=== PATIENT | female | born 1990 | race Caucasian/White ===

== ENCOUNTER → 2019-07-29 14:48 | Outpatient (CLI) | payer OTHER, SELFPAY ==
[2019-07-29 09:48] VITALS: BMI 33.4
[2019-08-02 16:08] LABS: HPV Reflexed? NOT INDICATED
== END ==
PROVIDERS: Family Provider Student in an Organized Health Care Education/Training Program; PCP Student in an Organized Health Care Education/Training Program; Visit Provider Obstetrics & Gynecology
DX: Z12.4 Encounter for screening for malignant neoplasm of cervix (principal)
CPT/HCPCS: 88175; G0145

== ENCOUNTER 2019-08-23 05:19 | Emergency (ER) | payer OTHER, SELFPAY ==
[2019-08-12 12:46] VITALS: BMI 33.4
[2019-08-23 05:23] VITALS: BP 135/94; PULSE 111; RESP 20; TEMP 36.8; O2SAT 99; BMI 40.4
[2019-08-23] MEDS: Ketorolac 30 MG/ML Syringe IV (06:01)
[2019-08-23] MEDS: Ondansetron 4 MG/2 ML Vial IV (06:01)
[2019-08-23] MEDS: 0.9% Normal Saline 1,000 ML 1000 ML IV (06:01)
[2019-08-23 06:02] LABS: Absolute Lymphocyte Count 0.75 X10^3/uL (0.83-4.51); Absolute Neutrophil Count 5.8 X10^3/uL (2.0-7.7); Basophil# 0.01 X10^3/uL; Basophil% 0.1 % (0-1); Eosinophil# 0.05 X10^3/uL; Eosinophils% 0.7 % (0-5); Hematocrit 47.3 % (37-47); Hemoglobin 16.2 g/dL (12.0-15.0); Lymphocyte # 0.75 X10^3/ul (4.0); Lymphocyte % 9.9 % (19-41); Mean Corp Hgb Conc 34.2 g/dL (32-36); Mean Corpuscular Hgb 29.7 pg (27.0-32.0); Mean Corpuscular Volume 86.6 fL (81-99); Mean Platelet Vol. 11.6 fl (6.2-12.0); Monocyte# 0.89 X10^3/uL; Monocyte% 11.8 % (0-10); NRBC Flagged by Analyzer 0 % (0-5); Neutrophil # 5.82 X10^3/uL (2.7-7.7); Neutrophil % 76.8 % (47-70); Platelet Count 191 K/mm3 (150-450); RBC Distribution Width CV 12.1 % (11.6-14.6); RBC Distribution Width SD 38.3 fl (35.1-43.9); Red Blood Count 5.46 M/mm3 (4.2-5.4); White Blood Count 7.6 K/mm3 (4.4-11.0)
--- NOTE | 2019-08-23 06:04 | ED.DCSUM_ITS ---
History of Present Illness Chief Complaint: Abd Pain Informant: Patient Onset: Yesterday Current Severity: Mild Maximum Severity: Moderate Narrative: Patient presents with nausea and abdominal pain that started yesterday morning. She points to the upper abdomen. She thought it was something she might have eaten the night before, but others with the same meal did not become ill. Patient had a slightly loose bowel movement last evening. She has not noted fever. - Past Medical History (1) Hypertension Status: Chronic (2) GERD (gastroesophageal reflux disease) Status: Chronic (3) PCOS (polycystic ovarian syndrome) Status: Chronic Comment: dakotah hayden Past Medical History - Allergies and Home Meds Allergies/Adverse Reactions: Allergies tree nut Allergy (Mild, Verified 08/23/19 05:20) rash in mouth and swelling Primary Care Physician: Chevy Prather DO [Primary Care Provider] - Prior records reviewed: Yes Surgical History: cholecystectomy, tonsillectomy Lives: Spouse/ Significant Other Smoking Status: Never smoker Review of Systems General: Reports: Chills Eyes: Denies: Visual changes - bilaterally ENT: Denies: Bilateral ear pain Cardiovascular: Denies: Chest pain Respiratory: Reports: Cough - Mild cough x3 weeks. Denies: Dyspnea Gastrointestinal: Reports: Abdominal pain, Nausea. Denies: Vomiting, Diarrhea Genitourinary: Denies: Dysuria, Hematuria Musculoskeletal: Denies: Back pain, Extremity Pain Skin: Denies: Rash Neurological: Denies: Headache Hematologic: Denies: Easy bruising Allergy: Denies: Uticaria Physical Exam Vital Signs/Narrative: Vital Signs Temp Pulse Resp BP Pulse Ox 08/23/19 05:23 98.3 F 111 H 20 H 135/94 H 99 Inital Vital Signs reviewed: Yes General: Well nourished, Well developed Head: Normocephalic ENT: Moist mucous membranes Neck: Supple Cardiovascular: Regular rate, Regular rhythm Respiratory: No distress, CTA bilaterally Abdomen: Soft, Tender - Mild upper abdominal tenderness palpation., Hypoactive bowel sounds. Negative for: Guarding, Rebound tenderness Extremities: Nontender, No edema Skin: Normal color, No rash Neurological: Alert, Oriented x3 Psychological: Normal affect Diagnostic/Tx/Re-eval Laboratory Results 08/23/19 08/23/19 08/23/19 05:30 05:30 05:30 WBC 7.6 RBC 5.46 H Hgb 16.2 H Hct 47.3 H MCV 86.6 MCH 29.7 MCHC 34.2 RDW Std Deviation 38.3 RDW Coeff of Amira 12.1 Plt Count 191 MPV 11.6 Immature Gran % (Auto) 0.700 Neut % (Auto) 76.8 H Lymph % (Auto) 9.9 L [place] % (Auto) 11.8 H Eos % (Auto) 0.7 Baso % (Auto) 0.1 Absolute Neuts (auto) 5.8 Absolute Lymphs (auto) 0.75 L Nucleated RBC % 0 Sodium 138 Potassium 3.5 Chloride 107 Carbon Dioxide 22.0 Anion Gap 9 BUN 8 Creatinine 0.70 Estim Creat Clear Calc 86.71 Est GFR (MDRD) Af Amer 129 Est GFR (MDRD) Non-Af 107 BUN/Creatinine Ratio 11.4 Glucose 107 H Calcium 8.1 L Total Bilirubin 1.10 H Direct Bilirubin 0.34 H AST 305 H ALT 681 H Alkaline Phosphatase 179 H Total Protein 7.2 Albumin 3.6 Globulin 3.6 Lipase 69 L Serum , Qual NEGATIVE - Medical Decision Making Patient was given Toradol and Zofran along with IV fluids. On repeat evaluation she does report mild improvement. Test results are discussed with her. Her liver function tests are elevated. She is already had a cholecystectomy. Acute hepatitis panel will be sent and patient will undergo right upper quadrant ultrasound to ensure liver and ducts appeared normal. If this is unremarkable patient be discharged with a prescription for Zofran. I did advise for the hepatitis panel will take a few days to come back and we will call her with any abnormal results. She is comfortable with this plan. ED Disposition - Plan for ED Patient: Disposition: Home or Assisted Living Diagnosis: Hepatitis, Nausea Instructions: ABDOMINAL PAIN, Unknown Cause, (Female), Hepatitis Panel Prescriptions: Ondansetron [Zofran Odt] 4 mg PO Q8H PRN PRN #10 tablet PRN Reason: Nausea Referrals: Chevy Prather DO [Primary Care Provider] - 1 Week
[2019-08-23 06:16] LABS: Internal QC Validated? YES +Cl - CLEAR BKGD; Pregnancy, Serum, hCG Quali. NEGATIVE Negative
[2019-08-23 06:18] LABS: AST(SGOT) 305 U/L (15-37); Alanine Aminotransfer ALT/SGPT 681 U/L (13-56); Albumin, Serum 3.6 g/dL (3.2-5.0); Alkaline Phosphatase 179 U/L (45-117); Anion Gap 9 (5-15); BUN 8 mg/dL (7-18); BUN/Creat Ratio 11.4 RATIO (10-20); Bilirubin, Direct 0.34 mg/dL (0.00-0.30); Calcium,Total 8.1 mg/dL (8.5-10.1); Chloride 107 mmol/L (98-107); EST Glomerular Filtration Rate 107 mL/min (>60); Est Glom Filt Rate - Afr Amer 129 mL/min (>60); Estimated Creatinine Clearance 86.71 ml/min; Globulin 3.6 g/dL (2.2-4.2); Glucose 107 mg/dL (74-106); Lipase 69 U/L (73-393); Potassium 3.5 mmol/L (3.5-5.1); Protein, Total 7.2 g/dL (6.4-8.2); Sodium Level 138 mmol/L (136-145)
--- NOTE | 2019-08-23 06:22 | US_ITS ---
STUDY: ABDOMINAL ULTRASOUND - RIGHT UPPER QUADRANT REASON FOR VISIT: Female, 29 years old TECHNIQUE: Ultrasound evaluation of the right upper quadrant was performed with real-time and static mcgovern-scale imaging. TECHNICAL QUALITY: Adequate. COMPARISON: None. FINDINGS: Liver: The liver measures 14 cm. There is normal echogenicity of the liver. The bile ducts are within normal limits. There is hepatic color flow. The direction of portal flow is hepatopetal. There is no demonstrated mass lesion. Gallbladder: Absent Common Bile Duct (C.B.D.): The common bile duct measures 3.1 mm. Pancreas: Normal size of the head, body and tail of the pancreas. There is normal echogenicity of the pancreas. There is no demonstrated pancreatic mass or cyst. Right Kidney: Normal size of the right kidney. The right kidney measures 9.9 x 5.6 x 4.5 cm. Normal renal cortex. The right cortex measures 1.3 cm. There is no demonstrated renal mass or cyst. There is no right hydronephrosis. US/Abdomen Limited IMPRESSION: Negative right upper quadrant ultrasound examination. Electronically Signed: Bill Strong, at 8:39 EST Tel , Service support ,
[2019-08-23 09:27] VITALS: BP 137/75; PULSE 89; RESP 16; O2SAT 100
[2019-08-24 03:06] LABS: HEPATITIS B SURFACE AG Negative (Negative); Hepatitis A IgM Antibody Negative (Negative); Hepatitis B Core AB IgM Negative (Negative)
[2019-08-24 13:21] LABS: Hep C Antibodies <0.1 s/co ratio (0.0-0.9)
== END 2019-08-23 09:28 | disposition home or self-care (01) ==
PROVIDERS: Emergency Provider Emergency Medicine; Family Provider Student in an Organized Health Care Education/Training Program; PCP Student in an Organized Health Care Education/Training Program
DX: R10.11 Right upper quadrant pain (principal); R11.0 Nausea
CPT/HCPCS: 76705; 80048; 80074; 80076; 83690; 84703; 85025; 96361; 96374; 96375; 99283; J7030; A4216; J2405

== ENCOUNTER → 2022-03-08 | Outpatient (CLI) | payer OTHER, SELFPAY ==
[2022-03-08 10:52] LABS: Absolute Lymphocyte Count 2.49 X10^3/uL (0.83-4.51); Absolute Neutrophil Count 6.4 X10^3/uL (2.0-7.7); Basophil# 0.06 X10^3/uL; Basophil% 0.6 % (0-1); Eosinophil# 0.42 X10^3/uL; Eosinophils% 4.1 % (0-5); Hematocrit 47.6 % (37-47); Hemoglobin 15.5 g/dL (12.0-15.0); Lymphocyte # 2.49 X10^3/ul (0.83-4.51); Lymphocyte % 24.1 % (19-41); Mean Corp Hgb Conc 32.6 g/dL (32-36); Mean Corpuscular Hgb 28.6 pg (27.0-32.0); Mean Corpuscular Volume 87.8 fL (81-99); Mean Platelet Vol. 11.6 fl (6.2-12.0); Monocyte# 0.91 X10^3/uL; Monocyte% 8.8 % (0-10); NRBC Flagged by Analyzer 0 % (0-5); Neutrophil # 6.37 X10^3/uL (2.7-7.7); Neutrophil % 61.7 % (47-70); Platelet Count 287 K/mm3 (150-450); RBC Distribution Width CV 12.5 % (11.6-14.6); RBC Distribution Width SD 39.9 fl (35.1-43.9); Red Blood Count 5.42 M/mm3 (4.2-5.4); White Blood Count 10.3 K/mm3 (4.4-11.0)
[2022-03-08 11:39] LABS: Estradiol 50.3 pg/mL; Follicle Stimulating Hormone 6.9 mIU/mL; Thyroid Stim Hormone (TSH) 3.18 uIU/mL (0.358-3.74)
[2022-03-10 21:49] LABS: HPV Reflexed? NOT INDICATED
[2022-03-15 07:39] LABS: 17-Hydroxyprogesterone 22 ng/dL (.)
== END | disposition home or self-care (01) ==
LOC: PAVLAB 10:26
PROVIDERS: PCP Student in an Organized Health Care Education/Training Program; Referring Provider Obstetrics & Gynecology; Visit Provider Obstetrics & Gynecology
DX: E28.2 Polycystic ovarian syndrome (principal); Z12.4 Encounter for screening for malignant neoplasm of cervix; Z13.29 Encounter for screening for other suspected endocrine disorder
CPT/HCPCS: 36415; 82627; 82670; 83001; 83498; 84402; 84443; 85025; 88175; 82626; G0145